=== PATIENT | female | born 1985 | race Caucasian/White ===

== ENCOUNTER 2017-08-08 09:12 | Outpatient (CLI) | payer OTHER ==
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
== END 2017-08-08 09:13 | disposition home or self-care (01) ==
LOC: SCSRAD 09:12
PROVIDERS: ATTEND Family Medicine
DX: S69.92XA Unspecified injury of left wrist, hand and finger(s), initial encounter (principal)